=== PATIENT | male | born 1975 | race Caucasian/White ===

== ENCOUNTER 2017-01-14 21:21 | Inpatient (IN) | payer OTHER ==
[~2017-01-14] VITALS: Ht 188 cm; Wt 102.8 kg
--- NOTE | ~2017-01-14 | ECHO ---
Transthoracic Echocardiography Report (TTE) Demographics Patient Name MIKE GUERRERO Date of Study 01/15/2017 Patient Number [id number] Visit Number [id number] Date of 1975 Room Number [id number] Gender Male Number Age 41 year(s) Referring Jerzy Luna V Metal Bonder Radha Paz RD, Physician RVT Physician Interpreting Tessa Henry MD Secret Code Expert Physician Supervising Ordering Tessa Henry MD, MD/MLP Physician Nurse Stress Logistics Specialist Conclusions Contractility Score Summary Normal Left Ventricular contractility was noted. Summary The estimated left ventricular ejection fraction is 60-65%. Normal left ventricle size and function. Diastolic assessment reveals normal relaxation. Mildly dilated right ventricle. The left atrium is mildly dilated by LA volume index measurement. The right atrium is mildly dilated. Normal left ventricle size and function. Diastolic assessment reveals normal relaxation. No evidence of HOCM Procedure Type of Study TTE procedure:2D Echocardiogram. Procedure Date Date: 01/15/2017 Start: 09:32 AM Study Location: Inpatient Portable Technical Quality: Adequate visualization Indications:Cardiomyopathy, hypertrophic. Additional Indications:history of hypertrophic cardiomyopathy and ablution. Appropriate Use Criteria: 9 Patient Status: Routine Rhythm: Within normal limits HR: 63 bpm BP: 115/58 mmHg M-Mode/2D Measurements LV Diastolic Dimension: 5.22 cm LV Systolic Dimension: 3.54 cm LV Septum Diastolic: 0.87 cm LV PW Diastolic: 0.94 cm AO Root Dimension: 3 cm Cardiac Output: 5.67 l/min AV Cusp Separation: 2.5 cm RV Diastolic Dimension: 2.45 cm LA Dimension: 3.9 cm LA volume: 68 ml LVOT: 2.1 cm RV Base: 4.42 cm LVOT VTI: 26 cm RV Mid: 4.39 cm LV Stroke volume: 90.01 ml RV Length: 8.24 cm TAPSE: 2.19 cm TDI-S': 14 cm/s Doppler Measurements AV Peak Velocity: 1.39 m/s MV Peak E-Wave: 1.03 m/s AV Peak Gradient: 7.73 mmHg MV Peak A-Wave: 0.69 m/s AV Mean Gradient: 4 mmHg MV E/A Ratio: 1.5 LVOT Peak Velocity: 1.07 m/s MV P1/2t: 51 msec TR Gradient:25.4 mmHg PV Peak Velocity: 1.17 m/s Estimated RAP:8 mmHg PV Peak Gradient: 5.48 mmHg Estimated RVSP: 33 mmHg Estimated PASP: 33.4 mmHg E' Lateral Velocity: 1.03 m/s A' Lateral Velocity: 0.7 m/s Findings Left Ventricle The estimated left ventricular ejection fraction is 60-65%. Normal left ventricle size and function. Diastolic assessment reveals normal relaxation. No evidence of HOCM Right Ventricle Mildly dilated right ventricle. Left Atrium Normal left atrial size. Right Atrium The right atrium is mildly dilated. Mitral Valve Trivial mitral regurgitation by color Doppler. Aortic Valve Normal aortic valve structure and function. Tricuspid Valve The tricuspid valve is not well visualized. Mild tricuspid regurgitation by color Doppler. Pulmonic Valve The pulmonic valve is not well visualized. Pericardial Effusion No evidence of pericardial effusion. Miscellaneous Suboptimal subcostal window to evaluate the IVC and interatrial septum. Pleural Effusion No evidence of pleural effusion. Contractility Score LV regional wall motion:(0-Non visualized 1-Normal 2-Hypokinesis 3-Akinesis 4-Dyskinesis 5-Aneurysm) Signature dtt: Carl Zarate (cardio) dtd: 01/15/17 0932 Physician Self Edit
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
--- NOTE | ~2017-01-14 | DS ---
PATIENT'S NAME: MIKE GUERRERO [facility] AGE: 41 Y [address] ROOM: [id number] [place], [place] [address] LOCATION: [facility] ADMIT DATE: 01/14/2017 Discharge Summary DISCHARGE DATE: 01/17/2017 FAMILY PHYSICIAN: PHYSICIAN, NO ATTENDING PHYSICIAN: Jeremy Bertrand V PRINCIPAL DISCHARGE DIAGNOSIS: Seizure. SECONDARY DIAGNOSES: 1. Lactic acidosis. 2. Respiratory alkalosis. 3. Headache. 4. Diabetes mellitus, type 2, insulin-dependent with hyperglycemia, poorly- controlled with hemoglobin A1c 8.3. 5. Anxiety, generalized. 6. History of polysubstance abuse with current positive cannabis on tox screen; morphine was given in the emergency room and showed up on the tox screen, which was obtained after this dose. 7. Hypertrophic cardiomyopathy, by history not identified on current echo. 8. Hypokalemia, resolved. 9. Acute kidney injury, present on admission, with creatinine of 1.5, current creatinine 0.8 from today. 10. Elevated prolactin at 190. 11. Intermittent tobacco use. PROCEDURES: A 2D echocardiogram from 01/15/2017 showed ejection fraction 60% to 65%. Other findings summarized: Mild bilateral atrial dilatation with mild right ventricular dilatation and no evidence of hypertrophic cardiomyopathy. BRIEF HISTORY: Mr. Guerrero is a 41-year-old male, a of the [employer]. He brought himself to the ER after what seems to have been an acute seizure precipitated by presyncopal sensation. The patient also has memory loss for some of the time around when he woke up in the car, then drove himself to the ER and initial time in the ER he reports he cannot recall exactly. Please see the ER record and the dictated H and P for the full history of these events. The patient was thought to be postictal and started on Keppra 500 mg p.o. daily. He has had no further seizure activity. He does report severe headache, this has been being treated with Tylenol and Dilaudid. I have recommend he not use narcotics for this and he is going to use Excedrin Migraine tablets, which he has at home for the headache. He has had no chest pain, but initially was treated with nitroglycerin for elevated blood pressure and for suspicion of some other cardiac causes of his PATIENT'S NAME: MIKE GUERRERO [facility] AGE: 41 Y [address] ROOM: [id number] [place], [place] [address] LOCATION: [facility] ADMIT DATE: 01/14/2017 Discharge Summary DISCHARGE DATE: 01/17/2017 FAMILY PHYSICIAN: PHYSICIAN, NO ATTENDING PHYSICIAN: Jeremy Bertrand V acute syncope. He has normal EF on the echo and as I said, no chest pain, he has been ambulatory without other symptoms at this time. His blood pressure was slightly elevated today, which seemingly could be related to his headache; although, he does say his blood pressures have been elevated some at home. I am recommending he increase his lisinopril although he should discuss this with his PCP provider, Dr. Gutiérrez, at the [facility] in [place] in the near future. His diabetes is inadequately controlled although improved from initial A1c's of 10 when he 1st got diagnosed. He has been on prandial insulin with Lantus at home. He is going to continue that. I have recommended he start NovoLog dosing prandial 6 units with each meal and continue the sliding scale directions as per his PCP. If needed, he could be seen by the diabetic educators here in [place]. However, at this time, he will pursue more diabetic teaching with the [facility]. The patient has been advised that he should follow up with Neurology at the [facility] within a week. INSTRUCTIONS AT DISCHARGE: 1. Diet: ADA diet 2000 calories. 2. Activity as tolerated. FOLLOW UP: He plans to go to the [facility] today and try to be seen as a walk-in; otherwise, he should have a hospital followup with Dr. Gutiérrez in 3 to 5 days and Neurology in 1 week. MEDICATIONS AT THE TIME OF DISCHARGE: 1. NovoLog insulin for sliding scale and prandial as outlined above. 2. Lantus 30 units subcu daily. 3. Keppra 500 mg p.o. b.i.d. 4. NicoDerm patch as needed. 5. Omeprazole 40 mg p.o. daily. 6. Trazodone 300 mg p.o. q.h.s. 7. Tylenol 650 mg p.o. p.r.n. as needed for headache. 8. Lisinopril 10 mg p.o. daily for hypertension and diabetic. CONDITION AT DISCHARGE: Good. Greater than 30 minutes was spent in this discharge process. BOBY PATIÑO MD PATIENT'S NAME: MIKE GUERRERO [facility] AGE: 41 Y [address] ROOM: [place] [address] LOCATION: [facility] ADMIT DATE: 01/14/2017 Discharge Summary DISCHARGE DATE: 01/17/2017 FAMILY PHYSICIAN: , NO ATTENDING PHYSICIAN: Jeremy Bertrand LM/marietta /[id number] CC: Eric James MD d: 01/18/17 0235 t: 01/24/17 1223, DISCHARGE SUMMARY
[2017-01-14 21:44] LABS: HEMATOCRIT 51.6 % (37.0-53.0); HEMOGLOBIN 18.5 g/dL (12.0-17.0); MCH 30.6 pg (27.0-34.0); MCHC 35.9 gm/dL (32.0-36.5); MCV 85.3 fl (83.0-98.0); MPV 11.4 fl (9.4-12.4); PLATELET COUNT 293 K/uL (150-450); RDW-CV 12.2 % (11.9-14.6)
[2017-01-14 21:46] LABS: RBC 6.05 M/uL (4.00-6.00); WBC 17.6 K/uL (4.0-11.0)
[2017-01-14 22:03] LABS: ALBUMIN 4.4 gm/dL (3.5-5.0); ALK PHOS 98 IU/L (33-138); ALT 69 IU/L (12-78); ANION GAP 22.3 (10.0-19.0); AST 43 IU/L (10-40); BLOOD UREA NITROGEN 15 mg/dL (6-24); CALCIUM 9.3 mg/dL (8.5-10.5); CHLORIDE 100 mMol/L (96-110); CO2 18 mMol/L (22-32); CPK 90 IU/L (35-332); CREATININE 1.5 mg/dL (0.6-1.3); MAGNESIUM 1.9 mg/dL (1.8-2.6); POTASSIUM 3.3 mMol/L (3.7-5.1); SODIUM 137 mMol/L (135-145); TOTAL BILIRUBIN 0.7 mg/dL (0.0-1.5); TOTAL PROTEIN 7.8 g/dL (6.0-8.4)
[2017-01-14 22:12] LABS: BILIRUBIN URINE NEGATIVE (NEGATIVE); BLOOD URINE NEGATIVE /UL (NEGATIVE); COLOR URINE YELLOW (YELLOW); GLUCOSE URINE 1000 mg/dL (NEGATIVE); KETONE URINE 50 mg/dL (NEGATIVE); LEUKOCYTES URINE 25 /UL (NEGATIVE); NITRITE URINE NEGATIVE (NEGATIVE); PROTEIN URINE 30 mg/dL (NEGATIVE); SPEC GRAVITY URINE 1.025 (1.003-1.035); TURBIDITY URINE CLEAR (CLEAR); UROBILINOGEN URINE NORMAL (NORMAL)
[2017-01-14 22:21] LABS: LYMPHOCYTE # 4.2 K/uL (0.8-4.0); LYMPHOCYTE % 24 %; MONOCYTE # 1.4 K/uL (0.0-1.0); SEGMENTED NEUTROPHIL % 68 %
[2017-01-14 22:27] LABS: AMORPHOUS URINE 1+ (NEGATIVE); BACTERIA URINE RARE (NEGATIVE); EPITHELIAL URINE 0-2 #/HPF (NEGATIVE); RBC URINE NEGATIVE #/HPF (NEGATIVE); WBC URINE 0-2 #/HPF (NEGATIVE)
[2017-01-14 22:28] LABS: CRYSTALS URINE CALCIUM OXALATE (NEGATIVE)
[2017-01-14 22:34] LABS: BICARBONATE 18.4 mmol/L (18.0-23.0); PCO2 23 mmHg (35-45); PO2 81 mmHg (80-90)
[2017-01-14 22:44] LABS: INR - (THERAPEUTIC) 1.16 (0.92-1.07); PROTIME 12.2 SECONDS (9.8-11.4); PTT 22 SECONDS (25-32)
[2017-01-14 23:29] LABS: COCAINE NEGATIVE (NEGATIVE); OPIATES POSITIVE (NEGATIVE)
[2017-01-14 23:32] LABS: AMPHETAMINE NEGATIVE (NEGATIVE)
[2017-01-14 23:33] LABS: BARBITURATE NEGATIVE (NEGATIVE)
[2017-01-14 23:59] LABS: CPK 61 IU/L (35-332)
--- NOTE | 2017-01-15 04:24 | NUR ---
Significant Event: Pt is alert and oriented x3. Pupils are equal and reactive. Moves all extremities spontaneous and to command. States he is having some tingling to his L) extremities which has improved since admition. Seizure precations in place. On 2L of O2 via NC. Bowel sounds are active. Voids per urinal. Follow up: continue to monitor.
[2017-01-15 06:30] LABS: BASOPHIL # 0.1 K/uL (0.0-0.2); BASOPHIL % 0.8 %; EOSINOPHIL # 0.2 K/uL (0.0-0.5); EOSINOPHIL % 1.2 %; HEMOGLOBIN 14.7 g/dL (12.0-17.0); IMMATURE GRANULOCYTE # 0.1 K/uL (0.0-0.3); IMMATURE GRANULOCYTE % 0.8 %; LYMPHOCYTE # 4.2 K/uL (0.8-4.0); LYMPHOCYTE % 29.9 %; MCH 31.3 pg (27.0-34.0); MCV 87.2 fl (83.0-98.0); MONOCYTE # 0.9 K/uL (0.0-1.0); MONOCYTE % 6.4 %; MPV 10.4 fl (9.4-12.4); NEUTROPHIL # (ANC) 8.6 K/uL (1.4-9.0); NEUTROPHIL % 60.9 %; NRBC % 0 /100WBC (0-0.00); RDW-CV 12.3 % (11.9-14.6)
[2017-01-15 06:31] LABS: MCHC 35.9 gm/dL (32.0-36.5); PLATELET COUNT 210 K/uL (150-450)
[2017-01-15 06:51] LABS: ALBUMIN 3.1 gm/dL (3.5-5.0); ALK PHOS 63 IU/L (33-138); ALT 47 IU/L (12-78); AST 23 IU/L (10-40); BLOOD UREA NITROGEN 12 mg/dL (6-24); CALCIUM 8.2 mg/dL (8.5-10.5); CHLORIDE 108 mMol/L (96-110); CO2 26 mMol/L (22-32); CREATININE 0.9 mg/dL (0.6-1.3); MAGNESIUM 1.9 mg/dL (1.8-2.6); PHOSPHORUS 4.6 mg/dL (2.5-4.9); SODIUM 141 mMol/L (135-145); TOTAL BILIRUBIN 0.8 mg/dL (0.0-1.5); TOTAL PROTEIN 5.7 g/dL (6.0-8.4)
[2017-01-15] MEDS ORDERED: PRILOSEC20 MG PO (08:50)
[2017-01-15] MEDS ORDERED: PRINIVIL OR ZES10 MG PO (08:51)
[2017-01-15] MEDS ORDERED: DESYREL100 MG PO (09:01)
[2017-01-15] MEDS ORDERED: LANTUS (IN100 UNIT/M SUB-Q (09:03)
--- NOTE | 2017-01-15 16:47 | NUR ---
PT A/OX3, C/O H/A THIS AFTERNOON WITH TYLENOL GIVEN THEN NORCO WITH MILD RELIEF. DENIES N/T, NO N/V, DENIES CP, MOSS, SOB. RA WITH LS CLEAR, VSS, AFEBRILE, NO EDEMA, PULSES 2+ T/O. ADEQ ORAL INTAKE, VOIDS PER BR, NO BM, BS NORMOACTIVE. PIV X1 S.L. MRA TODAY, RESULTS PENDING.
[2017-01-16 05:10] LABS: BASOPHIL # 0.1 K/uL (0.0-0.2); BASOPHIL % 0.9 %; EOSINOPHIL # 0.3 K/uL (0.0-0.5); EOSINOPHIL % 3.3 %; HEMATOCRIT 40.1 % (37.0-53.0); HEMOGLOBIN 14.2 g/dL (12.0-17.0); IMMATURE GRANULOCYTE % 0.3 %; MCH 31.3 pg (27.0-34.0); MCHC 35.4 gm/dL (32.0-36.5); MCV 88.5 fl (83.0-98.0); MONOCYTE # 0.5 K/uL (0.0-1.0); MONOCYTE % 4.8 %; MPV 10.4 fl (9.4-12.4); NEUTROPHIL # (ANC) 4.5 K/uL (1.4-9.0); NEUTROPHIL % 47.7 %; NRBC % 0 /100WBC (0-0.00); PLATELET COUNT 180 K/uL (150-450); RBC 4.53 M/uL (4.00-6.00); RDW-CV 12.2 % (11.9-14.6); WBC 9.4 K/uL (4.0-11.0)
[2017-01-16 05:23] LABS: ALBUMIN 3.2 gm/dL (3.5-5.0); ANION GAP 10.1 (10.0-19.0); BLOOD UREA NITROGEN 11 mg/dL (6-24); CALCIUM 8.3 mg/dL (8.5-10.5); CHLORIDE 110 mMol/L (96-110); CO2 27 mMol/L (22-32); CREATININE 0.8 mg/dL (0.6-1.3); POTASSIUM 4.1 mMol/L (3.7-5.1); SODIUM 143 mMol/L (135-145)
--- NOTE | 2017-01-16 17:44 | NUR ---
PT A/OX3, H/A WITH MILD RELIEF AFTER DILAUDID X2 AND EXCEDRIN MIGRAINE GIVEN PER HOME REGIMENT AND ONE DOSE TORADOL GIVEN WITH MILD NAUSEA D/T H/A AND ZOFRAN GIVEN X1; NO EMESIS. ADEQ ORAL INTAKE, BM X3, VOID PER BR X4, UP AD RADAMES. PIV S.L. WORKS WELL. VSS, AFEBRILE, NO EDEMA, LS C/D ON RA. SKIN INTACT.
--- NOTE | 2017-01-17 06:42 | NUR ---
Significant Event: PT A/OX3. FOLLOWS COMMANDS. NO NEURO CHANGES DURING SHIFT. H/A WITH MILD REFLIEF AFTER DILAUDID X3 AND NORCO GIVEN X1. HR'S 50'S-80'S. VSS. VOID PER BR X1. L) AC IV DC'D. R) FOREARM IV STARTED. Follow up: PAIN CONTROL
[2017-01-17] MEDS ORDERED: NOVOLOG100 UNIT/M SUB-Q ×2 (10:24→10:32)
[2017-01-17] MEDS ORDERED: KEPPRA500 MG PO (10:25)
[2017-01-17] MEDS ORDERED: NICODERM / HABIT7 MG TRANS (10:28)
[2017-01-17] MEDS ORDERED: TYLENOL325 MG PO (10:29)
--- NOTE | 2017-01-17 11:30 | NUR ---
Went to see patient and he had already be discharged to home.
== END 2017-01-17 12:01 | disposition disaster alternative care site (69) | DRG 638 ==
LOC: GMED 21:21 → GICU 23:59
PROVIDERS: Emergency Medicine; Family Medicine; ADMIT Internal Medicine
DX: E11.65 Type 2 diabetes mellitus with hyperglycemia (principal); E87.2 Acidosis; N19 Unspecified kidney failure; E87.3 Alkalosis; F19.20 Other psychoactive substance dependence, uncomplicated; E22.9 Hyperfunction of pituitary gland, unspecified; R51 Headache; Z79.4 Long term (current) use of insulin; F41.9 Anxiety disorder, unspecified; F17.200 Nicotine dependence, unspecified, uncomplicated; F12.229 Cannabis dependence with intoxication, unspecified; E87.6 Hypokalemia; Z86.79 Personal history of other diseases of the circulatory system; I10 Essential (primary) hypertension
CPT/HCPCS: J1170; J1885; J2270; J2405; J2550; J7030; Q9967